=== PATIENT | male | born 1985 | race African-American/Black ===

== ENCOUNTER 2020-07-05 11:56 | Emergency (ER) | payer OTHER ==
[2020-07-05] MEDS ORDERED: NORCO 5-325 TA1 EACH PO (13:04)
[2020-07-05] MEDS ORDERED: NAPROXEN500 MG PO (13:04)
== END 2020-07-05 13:22 | disposition home or self-care (01) ==
LOC: FER 11:56
DX: S97.81XA Crushing injury of right foot, initial encounter (principal); S90.31XA Contusion of right foot, initial encounter; F17.210 Nicotine dependence, cigarettes, uncomplicated; W20.8XXA Other cause of strike by thrown, projected or falling object, initial encounter; Y92.009 Unspecified place in unspecified non-institutional (private) residence as the place of occurrence of the external cause
CPT/HCPCS: 73630

== ENCOUNTER 2021-02-05 09:43 | Emergency (ER) | payer OTHER ==
[~2021-02-05 09:43] MED LIST: NAPROXEN500 MG PO; NORCO 5-325 TA1 EACH PO
[2021-02-05] MEDS ORDERED: PREDNISONE 20MG20 MG PO (13:33)
[2021-02-05] MEDS ORDERED: VENTOLIN HFA IN18 GM INH (13:33)
== END 2021-02-05 14:00 | disposition home or self-care (01) ==
LOC: FER 09:43
DX: J45.909 Unspecified asthma, uncomplicated (principal); F17.210 Nicotine dependence, cigarettes, uncomplicated; Z20.822 Contact with and (suspected) exposure to COVID-19
CPT/HCPCS: 71046; 94640; 94664; J2930; U0002